=== PATIENT | male | born 1965 | race Caucasian/White ===

== ENCOUNTER 2025-02-26 20:53 | Emergency (ER) | payer OTHER, SELFPAY ==
--- NOTE | 2025-02-26 21:12 | ED.CVA ---
History of Present Illness
General
Chief Complaint: CVA/TIA Symptoms
Source: patient and spouse
Exam Limitations: none
Time Seen by Provider: 02/26/25 21:00
Nursing documentation reviewed up to this point in time: agreed with
Onset of Stroke Symptoms
Onset of symptoms known: Yes
Date of onset of symptoms: 02/26/25
Time of onset of symptoms: 18:30
History of Present Illness
History of Present Illness:
Patient with history of asthma, hypercholesterolemia and depression, presents to ED secondary to sudden onset of slurred speech, comprehension, speech, and inability to walk or move his left arm, as noted by his this evening. Per , patient
went to visit his brother and came back to house around 5:30 PM, at his usual health. He had laid down on the couch and around 6:30 PM, he started speaking on his own, which was unclear to . At that time patient attempted to get up and fell on
the floor. He was unable to stand up, even with assistance from his . His attempted to arrange patient to bedroom by dragging his right arm. She was able to bring patient to the bedroom, but was unable to lift him up to his feet.
called one of his neighbors to come and assist.
Review of Systems
Review of Systems
Allergies reviewed?: Yes
All Other Systems: ROS reviewed and negative except as documented in HPI and ROS
Constitutional: Reports no symptoms
Respiratory: Reports no symptoms
Cardiac: Reports no symptoms
ABD/GI: Reports no symptoms
Musculoskeletal: Reports no symptoms
Skin: Reports no symptoms
Neurological: Reports weakness and other (slurred speech)
Phy Exam
Physical Exam
Physical Exam:
Physical Exam
General: no apparent distress, not acutely ill. afebrile
Head: nc/at. b/l pupils unable to cross midline
Neck: supple. no meningeal signs.
Heart: s1/s2 regular rate and rhythm
Lungs: no acute respiratory distress. clear bilaterally
Abdomen: normal bowel sounds. not tender. no CVAT
Neuro: alert and oriented x 3. LUE (1/5 motor strength). LLE (0/5 motor strength). slurred speech. left preferential gaze
Skin: no rash
Psychiatric: well kept. interactive and cooperative
Extremities: no edema. no calf tenderness.
Scores
NIH Stroke Score
Level of Consciousness: 0 - Alert
LOC Questions: 0-Answers both correctly
LOC Commands: 0-Performs both correctly
Best Horizontal Gaze: 1-Partial gaze palsy
Visual Gutierrez: 1=Partial hemianopia
Facial Palsy: 2=Partial paralysis
Motor - Right Arm: 0=No drift 10 seconds
Motor - Left Arm: 3=None vs. gravity
Motor - Right Le-No drift 5 seconds
Motor - Left Le-No movement
Limb Ataxia: 0-Absent
Sensation: 1-Mild loss
Best Language: 1-Mild aphasia
Dysarthria: 1-Mild slurring
Extinction and Inattention: 0-No abnormality
NIH Total Score:: 14
Course
Orders/Labs/Results
Orders:
Orders
02/26/25 20:55
Electrocardiogram (*1) Urgent
Reason for Study: Other
Other Reason for Exam: Possible Stroke
Bedside Glucose- Treatment ONCE
Cardiac Monitoring- Treatment ONCE
Vital Signs As Directed
Frequency: Other
Weight As Directed
Frequency: Once
Comment: ZERO STRETCHER SCALE FOR ACCURATE WEIGHT
O2 Therapy [RESP] Urgent
Titrate/Wean O2 to maintain O2 sat greater than (%): 93
Special Instructions: MAINTAIN CONTINUOUS O2 SATS > OR = 93%
02/26/25 20:56
EKG- Treatment ONCE
02/26/25 20:57
CT HEAD STROKE ALERT W/o Cont Urgent
Comment:
Reason For Exam: cva
02/26/25 21:00
CT BRAIN PERF STROKE ALERT Urgent
Comment:
Reason For Exam: cva
CT HEAD/NECK ANG STROKE ALERT Urgent
Comment:
Reason For Exam: pre hosp stroke alert
02/26/25 21:21
Complete Blood Count/With Diff Urgent
Comprehensive Metabolic Panel Urgent
PTT Urgent
Prothrombin Time Urgent
Troponin I Urgent
Tenecteplase [Tnkase] 25 mg Syringe [Syringe Non-Pump] 0 ml IV NOW
Abnormal Lab Results
02/26/25 02/26/25
21:21 21:25
RBC 4.24 L 10^6/uL
(4.70-6.10)
MCV 94.3 H fL
(80.0-94.0)
MCH 31.6 H pg
(27.0-31.0)
Abs Immat Gran (auto) 0.1 H 10^3/uL
(0-0.05)
Absolute Neuts (auto) 9.3 H 10^3/uL
(1.4-6.5)
Absolute Lymphs (auto) 0.4 L 10^3/uL
(1.2-3.4)
Immature Gran % 0.6 H %
(0-0.5)
Neutrophils % 89.7 H %
(42.2-75.2)
Lymphocytes % 4.0 L %
(20.5-51.1)
PT 14.9 H Sec
(11.4-14.6)
Sodium 133 L mmol/L
(135-145)
BUN 23 H mg/dl
(9-20)
Glucose 112 H mg/dl
(70-99)
Calcium 8.3 L mg/dl
(8.4-10.2)
Total Protein 6.2 L g/dl
(6.3-8.2)
POC Glucose 134 H mg/dl
(70-99)
02/26/25 21:21
02/26/25 21:21
Vital Signs
Initial and Last Documented VS:
Initial Vital Signs
Pulse Resp Pulse Ox
108 17 93
02/26/25 21:17 02/26/25 21:17 02/26/25 21:17
Last Documented Vital Signs
Pulse Resp BP Pulse Ox
108 21 116/80 93
02/26/25 22:22 02/26/25 22:22 02/26/25 22:22 02/26/25 22:00
MDM/Problems Addressed
MDM/Problems Addressed:
Patient evaluated immediately upon arrival and CT ordered. Discussed with patient's at bedside.
CT head images reviewed by stroke fellow at [facility]. Due to large area of hypodensity already noted on CT head, with increased risk of bleeding, does not recommend TNK administration at this time. However, in light of M1 occlusion seen on CT
angiogram, does recommend patient to be transferred to [facility] for potential thrombectomy.
Transfer consent on the chart.
Patient remains hemodynamically stable, without any further changes in neurological status.
Pt is alert/awake and answering simple questions appropriately without any respiratory compromise
Critical care statement: A total of 40 minutes of critical care time was provided for this patient. This includes management of unstable vital signs, evaluation of the patient at bedside, reviewing the patient's pertinent medical records, discussion
with consultants, review of old EKGs and review of pertinent medical records. This time with separate from time utilized to perform the aforementioned documented procedures
*Pulse Oximetry
Oxygen Mode of Delivery: Room air
Patient hypoxic: no
*Critical Care Note
Total Time (30-74mins, 75-104mins- exclusive of procedures): 40 min
ED Attending Note
-
Portions of this chart may have been created with voice recognition software.� Occasional wrong word or��sound alike� substitutions may have occurred due to the inherent limitations of voice recognition software.
Discharge Plan
Departure
Patient Disposition: Acute Care Hospital
Date of Disposition: 02/26/25
Time of Disposition: 21:53
Discharge Problem:
Acute CVA (cerebrovascular accident)
Hospital Transfer
Other hospital: [facility]
I certify that the patient requires transfer: Yes
Discussed case with accepting physician: Dr.Alice Pan
Reason for transfer: higher level of care, medical necessity, availability of service and specialties available
Interventions
Interventions:
*Risk Screen - Suicide Last Done: 02/26/25 21:09
*General Assessment Last Done: 02/26/25 21:22
*Neglect/Abuse Screening Last Done: 02/26/25 21:08
*ED- Fall Risk Assessment Last Done: 02/26/25 21:22
*ED COVID-19 Vaccine History Last Done: 02/26/25 21:22
*ED Influenza Vaccine History Last Done: 02/26/25 21:22
*Nursing Disposition Last Done: 02/26/25 22:32
ED- Pulmonary Assessment Last Done: 02/26/25 21:16
ED- Neurological Assessment Last Done: 02/26/25 21:34
ED- Cardiac Assessment Last Done: 02/26/25 21:16
ED Swallowing Screen Last Done: 02/26/25 21:33
Discharge Date and Time
Discharge Date/Time: 02/26/25 22:37
Print Language: INDONESIAN
[2025-02-26 21:18] VITALS: BP 142/77
[2025-02-26 21:27] LABS: Glucose - Point of Care 134 mg/dl (70-99)
[2025-02-26 21:28] LABS: Hematocrit 40.0 % (39.0-52.0); Hemoglobin 13.4 g/dL (13.0-18.0); Mean Corp Hgb Conc. 33.5 g/dL (33.0-37.0); Mean Corpuscular Volume 94.3 fL (80.0-94.0); Nucleated Red Blood Cells % 0 % (-); Platelet Count 146 10^3/uL (130-400); Red Cell Dist. Width 13.1 % (11.5-14.5)
[2025-02-26 21:48] VITALS: BP 124/82
[2025-02-26 21:48] LABS: AST (SGOT) 26 U/L (17-59); Albumin 3.6 g/dl (3.5-5.0); Alkaline Phosphatase 54 U/L (38-126); Blood Urea Nitrogen 23 mg/dl (9-20); Calcium 8.3 mg/dl (8.4-10.2); Carbon Dioxide 29 mmol/L (22-30); Chloride 101 mmol/L (98-107); Glucose 112 mg/dl (70-99); Sodium 133 mmol/L (135-145); Total Protein 6.2 g/dl (6.3-8.2); eGFR > 60.00
[2025-02-26 21:53] LABS: INR 1.14; PT 14.9 Sec (11.4-14.6)
[2025-02-26 21:54] LABS: APTT 23.7 Sec (23.4-35.0)
[2025-02-26 21:58] LABS: ALT (SGPT) 32 U/L (0-50); Potassium 3.8 mmol/L (3.5-5.1)
[2025-02-26 22:00] VITALS: BP 118/83
[2025-02-26 22:01] LABS: Troponin I < 0.012 ng/ml
[2025-02-26 22:22] VITALS: BP 116/80
== END 2025-02-26 22:37 | disposition short-term general hospital (02) ==
LOC: EMR 20:53
PROVIDERS: EMERGENCY PHYSICIAN Emergency Medicine; FAMILY PHYSICIAN Internal Medicine
DX: I63.9 Cerebral infarction, unspecified (principal); J45.909 Unspecified asthma, uncomplicated; E78.00 Pure hypercholesterolemia, unspecified; W18.30XA Fall on same level, unspecified, initial encounter
CPT/HCPCS: 99291; 0042T; 70450; 70496; 70498; 80053; 82962; 84484; 85025; 85610; 85730; 93005; J3101; Q9967